=== PATIENT | male | born 1935 | race Caucasian/White ===

== ENCOUNTER 2020-03-03 04:12 | Emergency (ER) | payer MEDICARE, BC ==
[~2020-03-03] VITALS: Ht 172.7 cm; Wt 57.1 kg
[2020-03-03] MEDS ORDERED: ZOFRAN4 MG PO (04:30)
[2020-03-03] MEDS ORDERED: LEXAPRO20 MG PO (04:30)
[2020-03-03] MEDS ORDERED: LAXATIVE SUPPOS10 MG RECTAL (04:31)
[2020-03-03] MEDS ORDERED: MIRALAX119 GM PO (04:31)
[2020-03-03] MEDS ORDERED: CARBIDOPA-LEVO1 EAC5 PO (04:31)
[2020-03-03] MEDS ORDERED: SUPER THERAVIT1 EACH PO (04:32)
[2020-03-03] MEDS ORDERED: MELATONIN3 M1 PO (04:32)
[2020-03-03] MEDS ORDERED: ASPERCREME1 EACH TOP (04:32)
[2020-03-03] MEDS ORDERED: TRAMADOL 50 MG50 MG PO (04:33)
[2020-03-03] MEDS ORDERED: ATIVAN0.5 M1 PO (04:33)
[2020-03-03] MEDS ORDERED: FEVERALL120 MG RECTAL (04:34)
[2020-03-03] MEDS ORDERED: LEVSIN0.125 MG PO (04:35)
[2020-03-03] MEDS ORDERED: MORPHINE SU0.2 MG/ML PO (04:36)
[2020-03-03] MEDS ORDERED: BIOFREEZE118 ML TOP (04:36)
[2020-03-03 05:58] VITALS: BP 118/71
== END 2020-03-03 05:58 | disposition home or self-care (01) ==
LOC: M.ERS 04:12
DX: S61.412A Laceration without foreign body of left hand, initial encounter (principal); W23.0XXA Caught, crushed, jammed, or pinched between moving objects, initial encounter; Y93.89 Activity, other specified; Y92.89 Other specified places as the place of occurrence of the external cause; Y99.8 Other external cause status